=== PATIENT | male | born 1960 | race Caucasian/White ===

== ENCOUNTER 2020-12-22 13:17 | Inpatient (IN) | payer BC ==
[~2020-12-22] VITALS: Ht 185.4 cm; Wt 110.7 kg
--- NOTE | 2020-12-22 13:50 | NUR ---
PT HERE FOR C/O SOB, AND PALPITATIONS SINCE 0 THIS MORNING. PT PLACED ON ALL MONITORS, CALL LIGHT WITHIN REACH.
[2020-12-22] MEDS ORDERED: LORA10TA75 PO (13:53)
[2020-12-22] MEDS ORDERED: CETI10CA PO (13:53)
[2020-12-22] MEDS ORDERED: STATIN (13:53)
[2020-12-22] MEDS ORDERED: ALBU18HF INH (13:53)
[2020-12-22] MEDS ORDERED: FLUT9.9S INH (13:53)
[2020-12-22 14:33] LABS: BASOPHILS % (AUTO) 1 % (0-1); EOSINOPHILS % (AUTO) 1 % (1-7); LYMPHOCYTES % (AUTO) 30 % (22-44); MEAN CORPUSCULAR HEMOGLOBIN 32.2 pg (27.5-34.5); MEAN CORPUSCULAR HGB CONC 34.5 g/dL (33.2-36.2); MEAN PLATELET VOLUME 9.2 fL (7.4-10.4); MONOCYTES % (AUTO) 10 % (2-9); NEUTROPHILS % (AUTO) 59 % (42-75); PLATELET COUNT 142 x10^3/uL (130-400); RED BLOOD COUNT 5.21 x10^6/uL (4.38-5.82); RED CELL DISTRIBUTION WIDTH 13.7 % (9.4-14.8)
[2020-12-22 14:35] LABS: ALBUMIN 3.9 g/dL (3.4-5.0); ANION GAP 5 mmol/L (5-15); CALCIUM 8.5 mg/dL (8.5-10.1); CHLORIDE 110 mmol/L (98-107); CREATININE 1.09 mg/dL (0.7-1.3)
[2020-12-22 14:46] LABS: FREE T4 (FREE THYROXINE) 0.85 ng/dL (0.76-1.46); TROPONIN I < 0.015 ng/mL (0.000-0.045)
--- NOTE | 2020-12-22 14:55 | NUR ---
PT RESTING ON DAVID IN NAD.
[2020-12-22] MEDS ORDERED: SODIUM CHLORIDE FLUSH 10ML SYR IVF PRN (16:30)
--- NOTE | 2020-12-22 16:34 | NUR ---
HOSPITALIST AT BEDSIDE.
--- NOTE | 2020-12-22 17:05 | NUR ---
report to mary marsh.
[2020-12-22] MEDS ORDERED: ACETAMINOPHEN 325 MG TABLET PO PRN (17:30)
[2020-12-22] MEDS ORDERED: SODIUM CHLORIDE 0.9% 1,000 ML IV SCH (17:30)
[2020-12-22 17:43] LABS: TROPONIN I < 0.015 ng/mL (0.000-0.045)
[2020-12-22] MEDS: SODIUM CHLORIDE 0.9% 1,000 ML IV SCH (18:00)
[2020-12-22 20:44] VITALS: BP 117/79
[2020-12-23 00:29] LABS: TROPONIN I < 0.015 ng/mL (0.000-0.045)
[2020-12-23 01:03] VITALS: BP 113/62
[2020-12-23 05:22] LABS: ANION GAP 4 mmol/L (5-15); CALCIUM 8.6 mg/dL (8.5-10.1); CHLORIDE 109 mmol/L (98-107); CREATININE 1.07 mg/dL (0.7-1.3)
[2020-12-23] MEDS: SODIUM CHLORIDE 0.9% 1,000 ML IV SCH (05:57)
[2020-12-23 06:55] VITALS: BP 133/79
[2020-12-23] MEDS ORDERED: FLUTICASONE NASAL SPRAY 16GM NAS SCH (09:00)
== END 2020-12-23 11:30 | disposition home or self-care (01) | DRG 310 ==
LOC: ED 15:57 → EDIP 16:23 → 5SO 18:09 → DCLOUNGE 12-23 11:09
PROVIDERS: ADMIT Hospitalist; ATTEND Internal Medicine
DX: R00.1 Bradycardia, unspecified (principal); K22.70 Barrett's esophagus without dysplasia; G47.33 Obstructive sleep apnea (adult) (pediatric); E66.9 Obesity, unspecified; I10 Essential (primary) hypertension; E78.5 Hyperlipidemia, unspecified; Z83.3 Family history of diabetes mellitus; Z88.5 Allergy status to narcotic agent; Z86.16 Personal history of COVID-19; Z88.8 Allergy status to other drugs, medicaments and biological substances; Z79.899 Other long term (current) drug therapy; Z68.32 Body mass index [BMI] 32.0-32.9, adult
CPT/HCPCS: 36415; 71045; 80048; 82040; 83735; 84439; 84443; 84484; 85025; 93005; 93306; G0378; J7030

== ENCOUNTER 2020-12-28 13:59 | Day surgery (SDC) | payer BC ==
[~2020-12-28] VITALS: Ht 185.4 cm; Wt 109.1 kg
[~2020-12-28 13:59] MED LIST: ALBU18HF INH; CETI10CA PO; FLUT9.9S INH; LORA10TA75 PO; STATIN
[2020-12-28] MEDS ORDERED: LIDOCAINE 2%, 20ML ONE (14:50)
== END 2020-12-28 15:32 | disposition home or self-care (01) ==
LOC: CACL 13:59
PROVIDERS: ATTEND Internal Medicine Cardiovascular Disease
DX: R00.2 Palpitations (principal)
CPT/HCPCS: 33285; C1764